=== PATIENT | male | born 1950 | race Hispanic/Latino ===

== ENCOUNTER → 2019-12-01 | Outpatient (CLI) | payer OTHER | END | disposition home or self-care (01) | LOC: OIH 07:35 | PROVIDERS: ATTEND Internal Medicine | DX: I10 Essential (primary) hypertension (principal); Z95.1 Presence of aortocoronary bypass graft | CPT/HCPCS: 71046 ==

== ENCOUNTER 2022-03-17 15:31 | Inpatient (IN) | payer OTHER ==
[~2022-03-17] VITALS: Ht 162.6 cm; Wt 78.5 kg
[2022-03-17] VITALS (8 sets, daily range): BP systolic 127–169; BP diastolic 68–91
[2022-03-17] MEDS ORDERED: SODIUM BICARB 50MEQ 50ML VIAL 50 ML ONE ×3 (15:39→15:57)
[2022-03-17 15:45] LABS: BASOPHILS % (AUTO) 0.6 % (0.0-5.0); EOSINOPHILS % (AUTO) 1.6 % (0.0-8.0); LYMPHOCYTES % (AUTO) 47.4 % (21.0-51.0); MEAN CORPUSCULAR HEMOGLOBIN 29.1 pg (27.0-33.0); MEAN CORPUSCULAR HGB CONC 30.2 g/dL (32.0-36.0); MEAN CORPUSCULAR VOLUME 96.3 fL (79-99); MONOCYTES % (AUTO) 7.6 % (3.0-13.0); NEUTROPHILS % (AUTO) 41.6 % (40.0-77.0); NUCLEATED RED BLOOD CELLS 0.8 % (0.0-0.19); PLATELET COUNT (AUTO) 193 K/uL (130-400); RED BLOOD CELL COUNT(AUTO) 4.36 MIL/uL (4.50-6.20); RED CELL DISTRIBUTION WIDTH 13.2 % (11.0-15.5); WHITE BLOOD COUNT (AUTO) 6.5 K/uL (4.8-10.8)
[2022-03-17] MEDS ORDERED: CALCIUM GLUC 1GM/10ML VIAL ONE (15:47)
[2022-03-17 15:53] LABS: CREATININE 1.7 mg/dL (0.5-1.5); POTASSIUM 5.4 mmol/L (3.5-5.1)
[2022-03-17] MEDS ORDERED: NOREPINEPHRIN 4MG/NS 250ML 250 ML IV ONE ×2 (15:56→17:06)
[2022-03-17 15:58] LABS: ALBUMIN 2.8 g/dL (3.5-5.0); BILIRUBIN,TOTAL 0.7 mg/dL (0.2-1.0); TOTAL PROTEIN, SERUM 6.4 g/dL (6.0-8.3)
[2022-03-17 16:06] LABS: ABG BASE EXCESS -9.2 mmol/L (-2.0-3.0); ABG HCO3 21.6 mmol/L (21.0-28.0); ABG OXYGEN SATURATION 94.9 % (95.0-99.0); ABG PCO2 73 mmHg (35-48)
[2022-03-17 16:36] LABS: APPEARANCE,URINE CLEAR (CLEAR); BILIRUBIN,URINE NEGATIVE (NEGATIVE); COLOR,URINE YELLOW (YELLOW); GLUCOSE, URINE (UA) NEGATIVE (NEGATIVE); KETONES,URINE NEGATIVE (NEGATIVE); LEUKOCYTE ESTERASE ,URINE NEGATIVE (NEGATIVE); NITRATE,URINE NEGATIVE (NEGATIVE); OCCULT BLOOD,URINE MODERATE (NEGATIVE); PH,URINE 6.5 (5.0-8.0); PROTEIN,URINE >=300 mg/dL (NEGATIVE); UROBILINOGEN,URINE 0.2 mg/dL (0.2-1.0)
[2022-03-17 16:52] LABS: BACTERIA,URINE Few /HPF (None Seen); SQUAMOUS EPITHELIAL CELL,UR Few /HPF (0-2)
[2022-03-17 16:53] LABS: MUCUS,URINE Few LPF (None Seen)
[2022-03-17] MEDS ORDERED: CARV6.25 PO (16:54)
[2022-03-17] MEDS ORDERED: GLIM4TAB36 PO (16:54)
[2022-03-17] MEDS ORDERED: METF-444 PO (16:54)
[2022-03-17] MEDS ORDERED: AEC81 PO (16:54)
[2022-03-17] MEDS ORDERED: SIMV80TA91 PO (16:54)
[2022-03-17] MEDS ORDERED: ROSU20TA31 PO (16:54)
[2022-03-17] MEDS ORDERED: EMPA10TA PO (16:54)
[2022-03-17] MEDS ORDERED: LISI40TA9 PO (16:54)
[2022-03-17] MEDS ORDERED: AMLO-257 PO (16:54)
[2022-03-17] MEDS ORDERED: NOREPINEPHRIN 4MG/NS 250ML 250 ML IV SCH (17:30)
[2022-03-17 17:42] LABS: ABG BASE EXCESS -4.2 mmol/L (-2.0-3.0); ABG HCO3 18.7 mmol/L (21.0-28.0); ABG OXYGEN SATURATION 99.4 % (95.0-99.0); ABG PCO2 29 mmHg (35-48)
[2022-03-17] MEDS ORDERED: LACTULOSE 20 GM/30 ML UDCUP PO PRN (18:00)
[2022-03-17] MEDS ORDERED: PROPOFOL 1000 MG/100 ML 100 ML IV SCH (18:00)
[2022-03-17] MEDS ORDERED: ONDANSETRON 4MG INJ IVP PRN (18:00)
[2022-03-17] MEDS ORDERED: FENTANYL CITRATE PF 50 MCG/1 ML 2ML VIAL IVP PRN (18:00)
[2022-03-17] MEDS ORDERED: VASOPRESSIN 20 UNITS in 0.9%NACL 100ML 99 ML IV PRN (18:00)
[2022-03-17] MEDS ORDERED: ACETAMINOPHEN 325 MG TAB PO PRN (18:00)
[2022-03-17] MEDS ORDERED: HYDRALAZINE 20MG/ML VIAL IV PRN (18:00)
[2022-03-17] MEDS ORDERED: LABETALOL 20MG SYG IV PRN (18:00)
[2022-03-17] MEDS: SOLU-MEDROL 125MG VIAL IVP SCH (18:37)
[2022-03-17] MEDS: IPRATROPIUM 0.5 MG/2.5 ML INH IH SCH ×2 (19:09→23:10)
[2022-03-17] MEDS: CEFTRIAXONE 1G VIAL IVP SCH (20:09)
[2022-03-17] MEDS: INSULIN HUMULIN R 100 UNIT/ML 3ML SQ SCH (20:12)
[2022-03-17] MEDS: ARTIFICAL TEARS SOL 15 ML OU SCH (20:18)
[2022-03-18] VITALS (101 sets, daily range): BP systolic 66–162; BP diastolic 27–110
[2022-03-18] MEDS: ARTIFICAL TEARS SOL 15 ML OU SCH ×4 (00:06→17:05)
[2022-03-18] MEDS: SOLU-MEDROL 125MG VIAL IVP SCH ×3 (02:14→17:06)
[2022-03-18 04:12] LABS: BASOPHILS % (AUTO) 0.1 % (0.0-5.0); HEMATOCRIT 42.8 % (42-54); MEAN CORPUSCULAR HEMOGLOBIN 29.2 pg (27.0-33.0); MEAN CORPUSCULAR HGB CONC 33.4 g/dL (32.0-36.0); MEAN CORPUSCULAR VOLUME 87.5 fL (79-99); MONOCYTES % (AUTO) 5.6 % (3.0-13.0); NEUTROPHILS % (AUTO) 86.9 % (40.0-77.0); PLATELET COUNT (AUTO) 200 K/uL (130-400); RED BLOOD CELL COUNT(AUTO) 4.89 MIL/uL (4.50-6.20); RED CELL DISTRIBUTION WIDTH 13.2 % (11.0-15.5)
[2022-03-18 05:11] LABS: B-TYPE NATRIURETIC PEPTIDE 777 pg/mL (0-100)
[2022-03-18 05:15] LABS: CREATININE 2.4 mg/dL (0.5-1.5); MAGNESIUM 1.6 mg/dL (1.80-2.40); PHOSPHORUS 1.5 mg/dL (2.5-4.9); POTASSIUM 3.8 mmol/L (3.5-5.1); THYROID STIMULATING HORMONE 1.04 uIU/mL (0.36-3.74)
[2022-03-18] MEDS: IPRATROPIUM 0.5 MG/2.5 ML INH IH SCH ×3 (06:41→18:00)
[2022-03-18] MEDS: POLYETHYLENE GLYCOL 3350 17 GM POWD.PACK PO SCH (07:45)
[2022-03-18] MEDS: INSULIN HUMULIN R 100 UNIT/ML 3ML SQ SCH ×3 (08:02→16:20)
[2022-03-18] MEDS: CEFTRIAXONE 1G VIAL IVP SCH ×2 (08:04→21:01)
[2022-03-18] MEDS: ACETAMINOPHEN 325 MG/10.15ML UDCUP PO PRN ×2 (08:04→12:28)
[2022-03-18] MEDS ORDERED: POTASSIUM PHOS 15 mMOL+NS250ML 250 ML IV PRN (08:30)
[2022-03-18] MEDS: MAGNESIUM 2GM PREMIX 50ML 50 ML IV PRN (08:38)
[2022-03-18 08:42] LABS: INR 1.15 (0.85-1.15); PROTHROMBIN TIME 12.4 SEC (9.6-11.6)
[2022-03-18] MEDS ORDERED: ENOXAPARIN SODIUM 30 MG/0.3 ML SQ SCH (09:00)
[2022-03-18] MEDS: LACTATED RINGERS 1000ML 1,000 ML IV SCH ×3 (09:50→21:03)
[2022-03-18] MEDS: PHENYLEPHRINE HCL 50 MG in 0.9% NACL 250ML 250 ML IV PRN ×5 (10:44→21:42)
[2022-03-18] MEDS: VASOPRESSIN 40 UNITS in 0.9%NACL 50ML 40 ML IV SCH ×2 (11:22→21:02)
[2022-03-18] MEDS ORDERED: HEPARIN 5,000 UNIT VIAL SQ SCH (21:00)
[2022-03-19] VITALS (56 sets, daily range): BP systolic 63–148; BP diastolic 32–84
[2022-03-19] MEDS: INSULIN HUMULIN R 100 UNIT/ML 3ML SQ SCH ×3 (00:04→11:14)
[2022-03-19] MEDS: ARTIFICAL TEARS SOL 15 ML OU SCH ×3 (00:05→11:36)
[2022-03-19] MEDS: PHENYLEPHRINE HCL 50 MG in 0.9% NACL 250ML 250 ML IV PRN ×5 (00:09→12:50)
[2022-03-19] MEDS: LACTATED RINGERS 1000ML 1,000 ML IV SCH ×2 (02:07→09:10)
[2022-03-19] MEDS: SOLU-MEDROL 125MG VIAL IVP SCH ×2 (02:07→07:51)
[2022-03-19 03:52] LABS: BASOPHILS % (AUTO) 0.1 % (0.0-5.0); HEMATOCRIT 40.5 % (42-54); LYMPHOCYTES % (AUTO) 10.6 % (21.0-51.0); MEAN CORPUSCULAR HEMOGLOBIN 29.1 pg (27.0-33.0); MEAN CORPUSCULAR HGB CONC 32.1 g/dL (32.0-36.0); MEAN CORPUSCULAR VOLUME 90.6 fL (79-99); MONOCYTES % (AUTO) 8.9 % (3.0-13.0); NUCLEATED RED BLOOD CELLS 0.2 % (0.0-0.19); PLATELET COUNT (AUTO) 70 K/uL (130-400); RED BLOOD CELL COUNT(AUTO) 4.47 MIL/uL (4.50-6.20); RED CELL DISTRIBUTION WIDTH 14.9 % (11.0-15.5); WHITE BLOOD COUNT (AUTO) 8.1 K/uL (4.8-10.8)
[2022-03-19 04:15] LABS: ALBUMIN 2.3 g/dL (3.5-5.0); BILIRUBIN,TOTAL 1.3 mg/dL (0.2-1.0); CREATININE 2.9 mg/dL (0.5-1.5); MAGNESIUM 1.7 mg/dL (1.80-2.40); TOTAL PROTEIN, SERUM 5.6 g/dL (6.0-8.3)
[2022-03-19] MEDS ORDERED: POTASSIUM CHLORIDE 20MEQ/100ML 100 ML IV PRN (04:30)
[2022-03-19] MEDS ORDERED: KCL 20 MEQ ERTAB PO PRN (04:30)
[2022-03-19] MEDS ORDERED: LIDOCAINE HCL-MPF 1% 2ML VIAL IV PRN (04:30)
[2022-03-19 04:42] LABS: PLATELET MORPHOLOGY COMMENT LARGE PLTS PRESENT
[2022-03-19] MEDS: POTASSIUM CHLORIDE 10% ELIXIR 20 MEQ/15 ML UDCUP PO PRN ×4 (05:01→13:21)
[2022-03-19] MEDS: MAGNESIUM 2GM PREMIX 50ML 50 ML IV PRN (05:02)
[2022-03-19] MEDS: IPRATROPIUM 0.5 MG/2.5 ML INH IH SCH ×3 (06:23→12:00)
[2022-03-19] MEDS: CEFTRIAXONE 1G VIAL IVP SCH (07:51)
[2022-03-19] MEDS ORDERED: PANTOPRAZOLE 40 MG/VIAL IVP SCH (09:00)
[2022-03-19] MEDS: POLYETHYLENE GLYCOL 3350 17 GM POWD.PACK PO SCH (09:00)
[2022-03-19] MEDS ORDERED: SODIUM BICARB 8.4% 50ML SYRINGE IVP ONE (15:04)
[2022-03-19] MEDS ORDERED: CACL 1GM SYG IVP ONE (15:04)
[2022-03-19] MEDS ORDERED: ATROPINE 1MG SYG IVP ONE (15:04)
== END 2022-03-19 15:05 | DRG 871 ==
LOC: EDH 15:31 → EDHIP 16:33 → 2CH 21:55
PROVIDERS: ADMIT Internal Medicine; ATTEND Internal Medicine
PROC: 5A1945Z Respiratory Ventilation, 24-96 Consecutive Hours (ICD-10-PCS; principal; 2022-03-17)
PROC: 0BH17EZ Insertion of Endotracheal Airway into Trachea, Via Natural or Artificial Opening (ICD-10-PCS; 2022-03-17)
PROC: 5A12012 Performance of Cardiac Output, Single, Manual (ICD-10-PCS; 2022-03-17)
PROC: 02HV33Z Insertion of Infusion Device into Superior Vena Cava, Percutaneous Approach (ICD-10-PCS; 2022-03-18)
PROC: B548ZZA Ultrasonography of Superior Vena Cava, Guidance (ICD-10-PCS; 2022-03-18)
DX: A41.9 Sepsis, unspecified organism (principal); I21.4 Non-ST elevation (NSTEMI) myocardial infarction; I50.23 Acute on chronic systolic (congestive) heart failure; J96.01 Acute respiratory failure with hypoxia; R65.21 Severe sepsis with septic shock; J18.9 Pneumonia, unspecified organism; R40.20 Unspecified coma; N17.9 Acute kidney failure, unspecified; M62.82 Rhabdomyolysis; G93.1 Anoxic brain damage, not elsewhere classified; I42.9 Cardiomyopathy, unspecified; E87.5 Hyperkalemia; Z66 Do not resuscitate; F03.90 Unspecified dementia, unspecified severity, without behavioral disturbance, psychotic disturbance, mood disturbance, and anxiety; I46.9 Cardiac arrest, cause unspecified; I49.01 Ventricular fibrillation; Z91.19 Patient's noncompliance with other medical treatment and regimen; E78.5 Hyperlipidemia, unspecified; I11.0 Hypertensive heart disease with heart failure; I25.10 Atherosclerotic heart disease of native coronary artery without angina pectoris; Z95.1 Presence of aortocoronary bypass graft; Z79.899 Other long term (current) drug therapy; Z20.822 Contact with and (suspected) exposure to COVID-19
CPT/HCPCS: 36415; 36600; 71045; 71250; 78610; 80048; 80053; 81001; 82140; 82435; 82550; 82803; 82947; 82948; 83605; 83735; 83874; 83880; 84100; 84132; 84145; 84295; 84443; 84484; 85018; 85025; 85610; 87040; 87071; 87077; 87186; 87205; 87635; 92950; 93005; 93306; 93356; 93970; 94002; 94003; 94640; 94664; 99291; A9512; C9113; C9803; G0378; J0461; J0610; J0696; J1644; J1650; J1815; J2370; J2930; J3475; J3490; J7050